=== PATIENT | female | born 1970 | race American Indian/Alaskan Native ===

== ENCOUNTER 2019-12-30 00:30 | Emergency (ER) | payer BC ==
[2019-12-30] MEDS ORDERED: ASPIRIN 325 MG TAB PO ONE (01:03)
[2019-12-30 01:41] LABS: Basophils # (Auto) 0.1 K/mm3 (0.0-0.1); Basophils % (Auto) 0.8 % (0.0-1.8); Eosinophils # (Auto) 0.3 K/mm3 (0.0-0.4); Eosinophils % (Auto) 2.6 % (0.0-4.3); Hematocrit 39.8 % (30.3-42.9); Lymphocytes # (Auto) 4.4 K/mm3 (1.2-5.4); Mean Corpuscular HGB Conc 33 % (30-34); Mean Corpuscular Volume 86 fl (79-97); Monocytes # (Auto) 1.1 K/mm3 (0.0-0.8); Monocytes % (Auto) 9.1 % (0.0-7.3); Platelet Count 373 K/mm3 (140-440); Red Blood Count 4.63 M/mm3 (3.65-5.03); Red Cell Distribution Width 14.9 % (13.2-15.2)
[2019-12-30 02:03] LABS: BUN/Creatinine Ratio 20; Blood Urea Nitrogen 12 mg/dL (7-17); Hemolysis Index 30
--- NOTE | 2019-12-30 02:28 | XRay Report ---
CHEST 1 VIEW INDICATION / CLINICAL INFORMATION: Chest Pain. COMPARISON: None available. FINDINGS: SUPPORT DEVICES: None. HEART / MEDIASTINUM: No significant abnormality. LUNGS / PLEURA: No significant pulmonary or pleural abnormality. No pneumothorax. ADDITIONAL FINDINGS: There is possible 2.5 cm right lower lobe nodule. Alternatively this may represe nt a slightly calcified liver lesion. Lateral film may be of benefit. IMPRESSION: 1 Possible right lower lobe nodule Signer Name: Harjeet Yeh MD Signed: 12/30/2019 2:24 AM Workstation Name: [id number]
--- NOTE | 2019-12-30 03:26 | Emergency Department Report ---
ED Chest Pain HPI - General Chief Complaint: Chest Pain Stated Complaint: CHEST DISCOMFORT Time Seen by Provider: 12/30/19 03:11 Source: patient Mode of arrival: Ambulatory Limitations: No Limitations - History of Present Illness Initial Comments: Patient is a 49-year-old female that presents emergency room with complaints of chest pain in the center of her chest that started 3 days ago. Patient states the chest pain is a pressure. Patient states sometimes it is a burning sensation. Patient states it is in the center of her chest. Patient states it is nonradiating. Patient states that she is also having some abdominal bloating at times. Patient states that her chest pain is a 4 out of 10. Patient denies shortness of breath. Patient denies back pain. Patient denies fever and chills. Patient denies cough. MD Complaint: chest pain -: Sudden, days(s) Onset: during rest Pain Location: substernal Pain Radiation: none Severity: mild Severity scale (0 -10): 4 Quality: pressure, other (burning) Improves With: antacids, rest Worsens With: palpation, movement re: denies: nausea, vomting, diaphoresis, dyspnea, sense of impending doom Other Symptoms: acid taste in mouth, burping. denies: cough, fever, syncope, rash, palpitations Treatments Prior to Arrival: none Aspirin use within the Past 7 Days: (0) No - Related Data On Oral Contraceptives: No Previous Rx's Medication Instructions Recorded Last Taken Type Albuterol INH(or & Nicu Only) 2 puff IH QID PRN #8.5 gram 12/30/19 Unknown Rx [ProAir HFA Inhaler] Esomeprazole Magnesium [NexIUM] 40 mg PO QDAY 30 Days #30 12/30/19 Unknown Rx capsule. Allergies Allergy/AdvReac Type Severity Reaction Status Date / Time Penicillins Allergy Rash Verified 12/30/19 03:24 Heart Score - HEART Score History: Slightly suspicious EKG: Normal Age: 45-65 Risk factors: No known risk factors Troponin: < normal limit HEART Score: 1 ED Review of Systems ROS: Stated complaint: CHEST DISCOMFORT Other details as noted in HPI Constitutional: denies: chills, fever Eyes: denies: eye pain, eye discharge, vision change ENT: denies: ear pain, throat pain Respiratory: denies: cough, shortness of breath, wheezing Cardiovascular: chest pain. denies: palpitations Endocrine: no symptoms reported Gastrointestinal: denies: abdominal pain, nausea, diarrhea Genitourinary: denies: urgency, dysuria, discharge Musculoskeletal: denies: back pain, joint swelling, arthralgia Skin: denies: rash, lesions Neurological: denies: headache, weakness, paresthesias Psychiatric: denies: anxiety, depression Hematological/Lymphatic: denies: easy bleeding, easy bruising ED Past Medical Hx - Past Medical History Previous Medical History?: Yes Hx Asthma: Yes - Surgical History Past Surgical History?: No - Family History Family history: no significant - Social History Smoking Status: Never Smoker Substance Use Type: None - Medications Home Medications: Home Medications Medication Instructions Recorded Confirmed Last Taken Type Albuterol INH(or & Nicu Only) 2 puff IH QID PRN #8.5 gram 12/30/19 Unknown Rx [ProAir HFA Inhaler] Esomeprazole Magnesium [NexIUM] 40 mg PO QDAY 30 Days #30 12/30/19 Unknown Rx capsule. ED Physical Exam - General Limitations: No Limitations General appearance: alert, in no apparent distress - Head Head exam: Present: atraumatic, normocephalic - Eye Eye exam: Present: normal appearance - ENT ENT exam: Present: mucous membranes moist - Neck Neck exam: Present: normal inspection - Respiratory Respiratory exam: Present: normal lung sounds bilaterally, chest wall te nderness. Absent: respiratory distress, wheezes, rales - Cardiovascular Cardiovascular Exam: Present: regular rate, normal rhythm. Absent: systolic murmur, diastolic murmur, rubs, gallop - GI/Abdominal GI/Abdominal exam: Present: soft, normal bowel sounds - Extremities Exam Extremities exam: Present: normal inspection - Back Exam Back exam: Present: normal inspection - Neurological Exam Neurological exam: Present: alert, oriented X3 - Psychiatric Psychiatric exam: Present: normal affect, normal mood - Skin Skin exam: Present: warm, dry, intact, normal color. Absent: rash ED Course Vital Signs 12/30/19 12/30/19 00:40 03:25 Temperature 98.1 F Pulse Rate 103 H 77 Respiratory 18 18 Rate Blood Pressure 156/90 Blood Pressure 146/73 [Left] O2 Sat by Pulse 99 99 Oximetry - Reevaluation(s) Reevaluation #1: I discussed all results and clinical findings with patient. I discussed plan of care with patient. Patient agrees with plan of care. Patient is stable for discharge. Patient will be discharged home. Patient given discharge instructions. Patient voiced understanding of discharge instructions. Patient asked for refill of her albuterol inhaler to have just in case. Patient will be given a refill. 12/30/19 03:48 JAROD score - Jarod Score Age > 65: (0) No Aspirin use within the Past 7 Days: (0) No 3 or more CAD Risk Factors: (0) No 2 or more Angina events in past 24 hrs: (0) No Known CAD with more than 50% Stenosis: (0) No Elevated Cardiac Markers: (0) No ST Deviation Greater than 0.5mm: (0) No AJROD Score: 0 ED Medical Decision Making - Lab Data Result diagrams: 12/30/19 01:18 12/30/19 01:18 - EKG Data -: EKG Interpreted by Me EKG shows normal: sinus rhythm, axis, intervals, QRS complexes, ST-T waves Rate: normal - Radiology Data Radiology results: report reviewed, image reviewed CHEST 1 VIEW INDICATION / CLINICAL INFORMATION: Chest Pain. COMPARISON: None available. FINDINGS: SUPPORT DEVICES: None. HEART / MEDIASTINUM: No significant abnormality. LUNGS / PLEURA: No significant pulmonary or pleural abnormality. No pneumot horax. ADDITIONAL FINDINGS: There is possible 2.5 cm right lower lobe nodule. Alternatively this may represent a slightly calcified liver lesion. Lateral film may be of benefit. IMPRESSION: 1 Possible right lower lobe nodule - Medical Decision Making Patient is a 49-year-old female who presents emergency room with complaints of chest pain. Patient's chest pain is in the center of her chest. Patient's had a lot of dyspepsia symptoms recently. Patient's clinical findings are consistent with gastritis. Patient's information was sent over to a local governor assembler hydraulic for further evaluation treatment of her chest pain. Patient also referred to a custodial maintenance worker to investigate the possibility of gastritis. Patient initial cardiac work-up was negative. Patient's chest pain was going on for 3 days and is a burning sensation. Patient's chest pain is low risk and can be worked up further as an outpatient. Patient's chest x-ray is negative except for a possible right lower lobe nodule. Patient will require further evaluation as an outpatient of this possible right lower lobe nodule. Patient's labs are unremarkable. Patient's troponin negative. Patient's EKG within normal limits and is negative for a STEMI or abnormalities. Patient discharged home. Patient given prescription for Nexium. Patient given ER precautions. Patient given discharge instructions. - Differential Diagnosis Chest pain, gastritis, GERD, Critical care attestation.: If time is entered above; I have spent that time in minutes in the direct care of this critically ill patient, excluding procedure time. ED Disposition Clinical Impression: GERD with esophagitis, Lung nodule Gastritis Qualifiers: Gastritis type: unspecified gastritis Chronicity: acute Gastritis bleeding: without bleeding Qualified Code(s): K29.00 - Acute gastritis without bleeding Chest pain Qualifiers: Chest pain type: unspecified Qualified Code(s): R07.9 - Chest pain, unspecified Disposition: TO HOME OR SELFCARE Is pt being admited?: No Does the pt Need Aspirin: No Condition: Stable Instructions: Chest Pain (ED), Gastritis (ED), Gastroesophageal Reflux in Child guille (ED), Diet for Ulcers and Gastritis (ED), Gastroesophageal Reflux Disease (ED) Additional Instructions: Patient to follow-up with primary care in 2 to 3 days. Patient to follow-up with cardiology in 2 to 3 days. Patient to follow-up with GI in 2 to 3 days. Patient to rest. Patient to increase water. Patient to avoid strenuous exercise or heavy lifting until cleared by cardiology. Patient to take Tylenol or ibuprofen as needed for pain. Patient to take meds as directed. Patient to return to the ER if condition worsens, changes or new symptoms arise. Prescriptions: Esomeprazole Magnesium [NexIUM] 40 mg PO QDAY 30 Days #30 capsule. Albuterol INH(or & Nicu Only) [ProAir HFA Inhaler] 2 puff IH QID PRN #8.5 gram PRN Reason: Shortness Of Breath Referrals: SWEETIE ISAACS MD [Staff Physician] - 2-3 Days MARIANO DAN MD [Staff Physician] - 2-3 Days BARRETT LINDSEY MD [Staff Physician] - 2-3 Days Time of Disposition: 03:47
[2019-12-30 03:56] VITALS: BP 146/73
== END 2019-12-30 05:30 | disposition home or self-care (01) ==
LOC: ED 00:30
DX: K21.0 Gastro-esophageal reflux disease with esophagitis (principal); R91.8 Other nonspecific abnormal finding of lung field; K29.70 Gastritis, unspecified, without bleeding; R07.89 Other chest pain; J45.909 Unspecified asthma, uncomplicated; Z79.899 Other long term (current) drug therapy; Z88.0 Allergy status to penicillin
CPT/HCPCS: 36415; 71045; 80048; 84484; 85025; 93005; 93010